=== PATIENT | female | born 1985 | race Caucasian/White ===

== ENCOUNTER 2021-06-29 20:51 | Emergency (ER) | payer MEDICAID ==
[~2021-06-29] VITALS: Ht 175.3 cm; Wt 72.6 kg
[2021-06-29] MEDS ORDERED: CLINDAMYCIN HCL 150 MG CAP PO ONE (23:15)
[2021-06-29 23:23] VITALS: BP 157/98
[2021-06-29] MEDS ORDERED: CLIN150C8 PO (23:32)
== END 2021-06-29 23:50 | disposition home or self-care (01) ==
LOC: ER 20:51
DX: L02.01 Cutaneous abscess of face (principal); L03.211 Cellulitis of face; Z88.8 Allergy status to other drugs, medicaments and biological substances
CPT/HCPCS: 81025

== ENCOUNTER 2024-12-12 13:36 | Emergency (ER) | payer MEDICAID ==
[~2024-12-12] VITALS: Ht 175.3 cm; Wt 87.0 kg
[~2024-12-12 13:36] MED LIST: CLIN150C18 PO
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
[2024-12-12] MEDS ORDERED: IBUP-1456 PO (15:44)
[2024-12-12] MEDS ORDERED: CEPH500C PO (15:44)
[2024-12-12 15:57] VITALS: BP 147/92; PULSE 69; RESP 17; TEMP 98.3
[2024-12-12 15:58] VITALS: O2SAT 99
== END 2024-12-12 15:59 | disposition home or self-care (01) ==
LOC: EDBD 13:36 → ER 13:36
DX: S42.033A Displaced fracture of lateral end of unspecified clavicle, initial encounter for closed fracture (principal); S01.312A Laceration without foreign body of left ear, initial encounter; S16.1XXA Strain of muscle, fascia and tendon at neck level, initial encounter; F17.200 Nicotine dependence, unspecified, uncomplicated; Z79.1 Long term (current) use of non-steroidal anti-inflammatories (NSAID); Z79.899 Other long term (current) drug therapy; Y00.XXXA Assault by blunt object, initial encounter; Y93.89 Activity, other specified; Y92.89 Other specified places as the place of occurrence of the external cause; Y99.8 Other external cause status
CPT/HCPCS: 12013; 70450; 72040; 73000

== ENCOUNTER 2024-12-27 16:03 | Inpatient (IN) | payer MEDICAID ==
[~2024-12-27] VITALS: Ht 175.3 cm; Wt 86.5 kg
[~2024-12-27 16:03] MED LIST changes: +CEPH500C PO; +IBUP-1456 PO
[2024-12-27 19:16] LABS: Hematocrit 44.8 % (36.0-46.0); Hemoglobin 14.8 g/dL (12.2-16.2); Mean Corpuscular Hemoglobin 29.6 pg (28.0-32.0); Mean Corpuscular Volume 89.2 fL (80.0-100.0); Nucleated Red Blood Cells % 0.0 %
[2024-12-27 19:25] LABS: Albumin 4.7 g/dL (3.2-4.8); Anion Gap 10 (5-15); BUN/Creatinine Ratio 8.5 (10.0-20.0); Calcium 9.4 mg/dL (8.7-10.4); Carbon Dioxide 26 mmol/L (20-31); Chloride 103 mmol/L (98-107); Potassium 3.6 mmol/L (3.5-5.1); Sodium 139 mmol/L (136-145); Total Protein 7.5 g/dL (5.7-8.2)
[2024-12-27 19:27] LABS: Alanine Aminotransferase 90 U/L (7-40); Alkaline Phosphatase 145 U/L (46-116); Bilirubin, Total 1.3 mg/dL (0.2-1.0); Blood Urea Nitrogen 7 mg/dL (9-23); Glucose 119 mg/dL (74-106)
[2024-12-27] MEDS: SODIUM CHLORIDE 0.9% 1,000 ML IV ONE (19:29)
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
--- NOTE | 2024-12-27 20:59 | DVH ---
EXAM: CT UPPER EXTREMITY WO CONTRAST INDICATION: right bicep at site of infection EXAM DATE: 12/27/2024 08:05 PM COMPARISON: None TECHNIQUE: Multiple axial CT images of right upper extremity were obtained using bone algorithm. Axia l and coronal reformatting was done. Bone and soft tissue windows were reviewed. Radiation Dose Information: CT Dose: CTDI volume is 8.87 mGy. Dose-length product is 3.85 mGy*cm Findings: Mild motion artifact limits subtle evaluation. An intravenous catheter is noted within the antecubital fossa. Mild inflammatory changes surrounding the cephalic vein within the proximal forearm. In addition, the re is mild inflammatory change surrounding the basilic vein. There is callus formation with heterotopic ossification surrounding a chronic distal clavicular fract ure. The humerus, radius and ulna, and carpal bones are within normal limits. There is mild subcutaneous edema overlying the biceps. No fluid collections. Impression: Inflammatory change surrounding the basilic and cephalic veins, correlate for thrombophlebitis. Consi rochelle dedicated ultrasound for further assessment. Mild edema in the subcutaneous tissues overlying the biceps muscle with mild skin thickening, correla te with examination. No fluid collections. Chronic distal clavicular fracture
[2024-12-27] MEDS: CLINDAMYCIN 600MG IV 50 ML IV ONE (21:24)
--- NOTE | 2024-12-27 22:21 | DVH ---
RIGHT Upper Extremity Venous Duplex Clinical History: right upper bicep edema , pain and erythema Comparison: CT UPPER EXTREMITY WO CONTRAST on DOS: 12/27/24, XY R CLAVICLE COMPLETE XRAY on DOS: 12/12 Technique: Duplex Doppler evaluation of the venous system of the RIGHT lower neck and upper extremity including color Doppler and spectral/pulsed waveform analysis was performed. Findings: The internal jugular vein demonstrates appropriate compressibility and waveform variability. The subclavian vein is patent on color Doppler evaluation without intraluminal thrombus and demonstra lopez waveform variability. The visualized portion of the brachiocephalic vein is patent on color Doppler evaluation without intr aluminal thrombus and demonstrates waveform variability. The axillary vein demonstrates appropriate compressibility and waveform variability. The brachial veins demonstrate appropriate compressibility and patency on Doppler evaluation. The basilic vein demonstrates appropriate compressibility and patency on Doppler evaluation. The cephalic vein demonstrates appropriate compressibility and patency on Doppler evaluation. Impression: 1. No venous thrombus identified in the RIGHT upper extremity vessels evaluated above. 2. If clinical concern/symptoms persist or worsen, short-interval follow-up study is suggested.
--- NOTE | 2024-12-27 22:41 | DVHHPRES ---
History of Present Illness Resident Creating Document: MAE RASHID RESIDENT History of Present Illness This is a 39-year-old female with medical history of diet-controlled diabetes, asthma, cardiomyopathy, epilepsy managed with marijuana, presented to the ER with chief complaint of right arm swelling and erythema. Patient reported that while fixing her garage gate 3 days back she got bit by a spider, the site eventually started swelling up. Since 1 day she also started complaining of bilateral eye redness and swelling. She denies fever, chills, headache, dizziness. PMHx: Diet-controlled diabetes, asthma, cardiomyopathy, epilepsy PSHx: Tubal ligation, hysterectomy, , cholecystectomy Social history: Uses vape both nicotine and marijuana. Quit smoking few years back, she was smoking 1 pack per day for 10 years. Full code Home medication: No home medications Allergic history: Hardy Hester Patient was examined at bedside today. Patient is admitted for further evaluation and management. Review of Systems Review of Systems ROS: Constitutional: Denies weight loss, fever and chills. HEENT: Bilateral eye redness and eyelids swelling, blurry vision. Respiratory: Denies shortness of breath and cough Cardiovascular: Denies chest discomfort or palpitations GI: Denies abdominal pain, nausea, vomiting and diarrhea. : Denies dysuria and urinary frequency. Musculoskeletal: Erythema and swelling in right arm Skin: Denies rash and pruritus. Neurological: Denies dizziness, headache, vision or hearing problems Allergies: Coded Allergies: Metoclopramide (Verified Allergy, Unknown, 06/29/21) Prochlorperazine (Verified Allergy, Unknown, 06/29/21) Exam Vital Signs Vital Signs Date Time Temp Pulse Resp B/P (MAP) Pulse Ox O2 Delivery O2 Flow Rate FiO2 12/27/24 18:38 98.5 95 18 122/84 (97) 99 98.5 12/27/24 18:38 Room Air Exam General: Patient alert and oriented in person, place and time. Patient following commands. HEENT: Bilateral eyelid swelling. Bilateral conjunctival injection, sawyer discharge. Respiratory/pulmonary: Clear lungs bilaterally, vesicular murmurs present in almost all lung bob, no associated crackles or wheezes. Cardiovascular: Normal heart sounds S1 and S2 with no associated murmurs Abdomen: Abdomen nondistended, there is no pain to palpation in any of the abdominal quadrants, no palpable masses. Extremities: Right arm nodular swelling around the biceps, indurated skin, diffuse erythema around the nodular swelling with elevated temperature Peripheral Pulses: 3+ Radial (R). 3+ Radial (L). 3+ Dorsalis pedis (R). 3+ Dorsalis pedis(L) Skin: No rashes or pruritus, there is no sacral edema present at this time. Neurological: Intact cranial nerves with no focal neurologic deficits Labs/Xrays Labs Test 12/27/24 18:57 Range/Units White Blood Count 11.3 H 4.4-10.8 10^3/uL Red Blood Count 5.02 4.0-5.20 10^6/uL Hemoglobin 14.8 12.2-16.2 g/dL Hematocrit 44.8 36.0-46.0 % Mean Corpuscular Volume 89.2 80.0-100.0 fL Mean Corpuscular Hemoglobin 29.6 28.0-32.0 pg Mean Corpuscular Hemoglobin Concent 33.2 32.0-36.0 g/dL Red Cell Distribution Width 12.7 11.8-14.3 % Platelet Count 356 140-450 10^3/uL Mean Platelet Volume 6.6 L 6.9-10.8 fL Neutrophils (%) (Auto) 70.6 37.0-80.0 % Lymphocytes (%) (Auto) 18.9 10.0-50.0 % Monocytes (%) (Auto) 9.1 0.0-12.0 % Eosinophils (%) (Auto) 0.9 0.0-7.0 % Basophils (%) (Auto) 0.5 0.0-2.0 % Neutrophils # (Auto) 8.0 1.6-8.6 10 ^3/uL Lymphocytes # (Auto) 2.1 0.4-5.4 10 ^3/uL Monocytes # (Auto) 1.0 0-1.3 10 ^3/uL Eosinophils # (Auto) 0.1 0-0.8 10 ^3/uL Basophils # (Auto) 0.1 0-0.2 10 ^3/uL Nucleated Red Blood Cells 0.0 % D-Dimer, Quantitative 0.26 0.0-0.49 mg/L FEU Sodium Level 139 136-145 mmol/L Potassium Level 3.6 3.5-5.1 mmol/L Chloride Level 103 98-107 mmol/L Carbon Dioxide Level 26 20-31 mmol/L Anion Gap 10 5-15 Blood Urea Nitrogen 7 L 9-23 mg/dL Creatinine 0.82 0.550-1.02 mg/dL Glomerular Filtration Rate Calc 92 >90 mL/min BUN/Creatinine Ratio 8.5 L 10.0-20.0 Serum Glucose 119 H 74-106 mg/dL Calcium Level 9.4 8.7-10.4 mg/dL Total Bilirubin 1.3 H 0.2-1.0 mg/dL Aspartate Amino Transferase (AST) 52 H 13-40 U/L Alanine Aminotransferase (ALT) 90 H 7-40 U/L Alkaline Phosphatase 145 H 46-116 U/L Total Protein 7.5 5.7-8.2 g/dL Albumin 4.7 3.2-4.8 g/dL SEPSIS Sepsis Screen Date sepsis recognized/suspect: Dec 27, 2024 Time Sepsis recognized/suspect: 1608 Recent Procedure: No On Antibiotic Therapy: No Respiratory Rate >20: No Heart Rate >90: No Temp<36 C (96.8 F) or >38.3 C: No SBP <90 or MAP <65 mmHG: No New Acute Mental Status Change: No Is the patient on CPAP, BIPAP,: No Physician Orders Blood Culture (12/27/24 18:50) Heplock Iv (12/27/24 ) Upper Extremity Wo Contrast (12/27/24 19:40) Rt Upper Dvt (12/27/24 21:27) Urinalysis (12/27/24 21:27) Drug Screen (12/27/24 21:27) Vital Signs Date Time Temp Pulse Resp B/P (MAP) Pulse Ox O2 Delivery O2 Flow Rate FiO2 12/27/24 18:38 98.5 95 18 122/84 (97) 99 98.5 12/27/24 18:38 95 18 99 Room Air 12/27/24 16:08 98.3 81 18 160/92 100 98.3 Laboratory Tests Test 12/27/24 18:57 White Blood Count 11.3 10^3/uL (4.4-10.8) H Medications Medications Dose Ordered Sig/Yasmin Route Start Time Stop Time Status Last Admin Dose Admin Clindamycin Phosphate 50 ml @ 50 mls/hr ONCE ONCE IV 12/27/24 19:00 12/27/24 19:59 DC 12/27/24 21:24 50 MLS/HR Sodium Chloride 1,000 ml @ 1,000 mls/hr Q1H ONCE IV 12/27/24 19:00 12/27/24 19:59 DC 12/27/24 19:29 1,000 MLS/HR Assessment/Plan Assessment/Plan Cellulitis right upper arm Thrombophlebitis right upper arm CT shows Inflammatory change surrounding the basilic and cephalic veins, correlate for thrombophlebitis. Consider dedicated ultrasound for further assessment. Mild edema in the subcutaneous tissues overlying the biceps muscle with mild skin thickening, correlate with examination. Started on IV cefazolin and IV fluid Blood culture and MRSA screen ordered Transaminitis Hepatomegaly and hepatic steatosis Hepatitis panel, liver ultrasound ordered DVT ruled out Right upper extremity Doppler negative for DVT Bilateral bacterial conjunctivitis Erythromycin ointment, artificial Tear eyedrops Ordered STI work up History of epilepsy History of cardiomyopathy Ordered echocardiogram Nicotine dependence Counseled to quit nicotine on bedside for more than 12 minutes Offered nicotine patch DIET: Consistent carb DVT PROPHYLAXIS: Lovenox GI PROPHYLAXIS: Protonix CODE STATUS: Goals of care discussed with patient at bedside for more than 37 minutes. Full code DISPOSITION: Med/surge Patient's status and plan discussed with the patient. Case discussed with Dr. Brown Plan discussed with: Patient, Other (Nurses) Date of Service: Dec 27, 2024 Billing Provider: KRISTIN BROWN MD Common Visit Codes: [id number] INP/OBS CARE (HIGH) Secondary Visit Codes: [id number] CARE PLAN 30 MINUTES MAE RASHID RESIDENT Dec 27, 2024 22:41 MARILYN ROMERO RESIDENT Dec 28, 2024 07:57
[2024-12-27] MEDS ORDERED: MORPHINE SULFATE INJ 2 MG/ml SYRG IV PRN (23:15)
[2024-12-27] MEDS: ENOXAPARIN SOD 40 MG/0.4 ML SYRINGE SC SCH (23:15)
[2024-12-27 23:39] LABS: Magnesium 2.3 mg/dL (1.6-2.6)
[2024-12-27 23:40] LABS: Cholesterol 157.0 mg/dL (< 200); HDL Cholesterol 56.0 mg/dL (40-59)
[2024-12-27 23:44] LABS: Triglycerides 156.0 mg/dL (< 150)
[2024-12-27] MEDS: ERYTHROMY OPTH OINT 5mg/gm 1gm or 3.5gm tube OP ONE (23:45)
[2024-12-27] MEDS: ceFAZolin 1GM/50ML 50 ML IV ONE (23:45)
[2024-12-27 23:56] LABS: Lipase 37.0 U/L (12-53)
[2024-12-28] VITALS (7 sets, daily range): BP systolic 120–142; BP diastolic 74–88; PULSE 71–103; RESP 18–92; TEMP 97.9–98.7; O2SAT 96–99
[2024-12-28 00:24] LABS: INR 1.03 (0.9-1.15); Partial Thromboplastin Time 30.2 SEC (24.5-34.5); Prothrombin Time 10.9 sec (9.3-11.8)
[2024-12-28] MEDS: ERYTHROMY OPTH OINT 5mg/gm 1gm or 3.5gm tube OP SCH (02:00)
[2024-12-28] MEDS: SODIUM CHLORIDE 0.9% 1,000 ML IV SCH (05:55)
--- NOTE | 2024-12-28 06:14 | DVH ---
INDICATION: Transminitis TECHNIQUE: Multiple real-time sonographic images were obtained of the right upper quadrant. COMPARISON: None FINDINGS: The liver demonstrates diffusely increased echotexture without focal mass lesions. The live r measures 17.7 cm. Normal hepatopetal portal venous flow identified. No evidence of pleural effusio n or abdominal ascites. There is no intrahepatic or extrahepatic ductal dilatation. The common duct measures 0.4 cm. The gallbladder is surgically absent. Negative sonographic jung's sign. The right kidney measures 9.9 cm. The right kidney is normal in contour, size, and shape. The echogen icity is normal. There is no hydronephrosis. The pancreas is not well visualized due to overlying bowel gas. IMPRESSION: 1. Hepatic steatosis and hepatomegaly. 2. Cholecystectomy.
[2024-12-28 09:06] LABS: Hematocrit 43.7 % (36.0-46.0); Hemoglobin 14.3 g/dL (12.2-16.2); Mean Corpuscular Hemoglobin 29.7 pg (28.0-32.0); Mean Corpuscular Volume 90.9 fL (80.0-100.0); Nucleated Red Blood Cells % 0.1 %
[2024-12-28 09:27] LABS: Albumin 4.4 g/dL (3.2-4.8); Anion Gap 9 (5-15); BUN/Creatinine Ratio 10.0 (10.0-20.0); Calcium 9.1 mg/dL (8.7-10.4); Carbon Dioxide 26 mmol/L (20-31); Chloride 103 mmol/L (98-107); Glucose 86 mg/dL (74-106); Potassium 4.2 mmol/L (3.5-5.1); Sodium 138 mmol/L (136-145); Total Protein 7.1 g/dL (5.7-8.2)
[2024-12-28] MEDS: NICOTINE 14 MG/24HR TOPICAL PATCH TD SCH (10:00)
[2024-12-28] MEDS: ACETAMINOPHEN 325 MG TAB PO PRN (10:04)
[2024-12-28 10:05] LABS: Alanine Aminotransferase 112 U/L (7-40); Alkaline Phosphatase 163 U/L (46-116); Bilirubin, Total 1.3 mg/dL (0.2-1.0); Blood Urea Nitrogen 7 mg/dL (9-23)
[2024-12-28] MEDS: PANTOPRAZOLE 40 MG TAB PO SCH (10:06)
[2024-12-28] MEDS: ceFAZolin 1GM/50ML 50 ML IV SCH (10:16)
[2024-12-28 15:34] LABS: Urine Protein, UAD Negative (Negative)
[2024-12-28 15:44] LABS: Amphetamine Screen, Urine Pos (NEGATIVE); Barbiturate Scree,Urine Neg (NEGATIVE); Benzodiazephine Screen, Urine Neg (NEGATIVE); Cannabinoid Screen, Urine Neg (NEGATIVE); Cocaine Screen, Urine Neg (NEGATIVE); Opiate Scree,Urine Neg (NEGATIVE); Phencyclidine Screen, Urine Neg (NEGATIVE)
--- NOTE | 2024-12-28 18:07 | DVHPN2 ---
Assessment/Plan Assessment/Plan 39 F with diet controlled DM, asthma, CM, epilepsy admitted for cellulitis 2/2 bug bite. has L ear suture s/p trauma seen today, swelling improved, ct with phlebitis and celulitis physical exam aox4 ctab s1 s2 rrr abdomen soft no le edema R biceps swelling tenderness L ear sutures labs ekg imaging reviewed assessment and plan NIDDM cellulitis w phlebitis transaminitis dvt ruled out conjunctivitis epilepsy smoker ear lac s/p sutures ancef remove sutures tomorrow resume home meds diet diabetic dvt ppx hold full code Plan discussed with: Patient Date of Service: Dec 28, 2024 Billing Provider: KRISTIN COTTO MD Common Visit Codes: [id number] INP/OBS CARE(HIGH) KRISTIN COTTO MD Dec 28, 2024 18:07
[2024-12-28] MEDS: ARTIFICIAL TEAR OPTH(EYE) OINT 3.5GM EACHEYE SCH (22:58)
[2024-12-29 01:00] VITALS: BP 130/96; PULSE 98; RESP 18; TEMP 98.1; O2SAT 98
[2024-12-29 05:00] VITALS: BP 124/88; PULSE 87; RESP 17; TEMP 97.7; O2SAT 96
[2024-12-29 08:00] VITALS: PULSE 87; RESP 18; O2SAT 96
[2024-12-29 08:42] VITALS: BP 124/88; PULSE 87; RESP 18; TEMP 98.2; O2SAT 96
[2024-12-29] MEDS ORDERED: IBU600T PO (09:29)
[2024-12-29] MEDS ORDERED: AUG875T PO (09:29)
--- NOTE | 2024-12-29 09:31 | DVHDS2 ---
Discharge Summary Date of Admission Dec 27, 2024 at 23:08 Date of Discharge: Dec 29, 2024 Labs/Diagnostic Data: Laboratory Results Test 12/28/24 15:00 12/28/24 08:44 12/27/24 23:50 12/27/24 18:57 Urine Color Light-yellow (Yellow) Urine Clarity Clear (Clear) Urine pH 7.5 (5.0-9.0) Urine Specific Schuyler 1.007 (1.001-1.035) Urine Protein Negative (Negative) Urine Ketones Negative (Negative) Urine Blood Negative /uL (Negative) Urine Nitrite 2+ (Negative) Urine Bilirubin Negative (Negative) Urine Urobilinogen Normal mg/dL (Negative) Urine Leukocyte Esterase 2+ /uL (Negative) Urine RBC <1 /hpf (0 - 4) Urine Microscopic WBC 8 /HPF (0-5) Urine Squamous Epithelial Cells Few /hpf (<5) Urine Bacteria Few /hpf (None Seen) Urine Glucose Normal mg/dL (Normal) Urine Test Negative (Negative) Urine Opiates Screen Neg (NEGATIVE) Urine Fentanyl Screen Neg (NEGATIVE) Urine Barbiturates Screen Neg (NEGATIVE) Urine Phencyclidine Screen Neg (NEGATIVE) Urine Amphetamines Screen Pos (NEGATIVE) Urine Benzodiazepines Screen Neg (NEGATIVE) Urine Cocaine Screen Neg (NEGATIVE) Urine Cannabinoids Screen Neg (NEGATIVE) White Blood Count 10.7 10^3/uL (4.4-10.8) Red Blood Count 4.81 10^6/uL (4.0-5.20) Hemoglobin 14.3 g/dL (12.2-16.2) Hematocrit 43.7 % (36.0-46.0) Mean Corpuscular Volume 90.9 fL (80.0-100.0) Mean Corpuscular Hemoglobin 29.7 pg (28.0-32.0) Mean Corpuscular Hemoglobin Concent 32.7 g/dL (32.0-36.0) Red Cell Distribution Width 13.0 % (11.8-14.3) Platelet Count 334 10^3/uL (140-450) Mean Platelet Volume 6.6 fL (6.9-10.8) Neutrophils (%) (Auto) 60.5 % (37.0-80.0) Lymphocytes (%) (Auto) 26.8 % (10.0-50.0) Monocytes (%) (Auto) 10.5 % (0.0-12.0) Eosinophils (%) (Auto) 1.4 % (0.0-7.0) Basophils (%) (Auto) 0.8 % (0.0-2.0) Neutrophils # (Auto) 6.5 10 ^3/uL (1.6-8.6) Lymphocytes # (Auto) 2.9 10 ^3/uL (0.4-5.4) Monocytes # (Auto) 1.1 10 ^3/uL (0-1.3) Eosinophils # (Auto) 0.1 10 ^3/uL (0-0.8) Basophils # (Auto) 0.1 10 ^3/uL (0-0.2) Nucleated Red Blood Cells 0.1 % Sodium Level 138 mmol/L (136-145) Potassium Level 4.2 mmol/L (3.5-5.1) Chloride Level 103 mmol/L (98-107) Carbon Dioxide Level 26 mmol/L (20-31) Anion Gap 9 (5-15) Blood Urea Nitrogen 7 mg/dL (9-23) Creatinine 0.70 mg/dL (0.550-1.02) Glomerular Filtration Rate Calc 111 mL/min (>90) BUN/Creatinine Ratio 10.0 (10.0-20.0) Serum Glucose 86 mg/dL (74-106) Calcium Level 9.1 mg/dL (8.7-10.4) Total Bilirubin 1.3 mg/dL (0.2-1.0) Aspartate Amino Transferase (AST) 77 U/L (13-40) Alanine Aminotransferase (ALT) 112 U/L (7-40) Alkaline Phosphatase 163 U/L (46-116) Total Protein 7.1 g/dL (5.7-8.2) Albumin 4.4 g/dL (3.2-4.8) Prothrombin Time 10.9 sec (9.3-11.8) Prothrombin Time INR 1.03 (0.9-1.15) Activated Partial Thromboplast Time 30.2 SEC (24.5-34.5) D-Dimer, Quantitative 0.26 mg/L FEU (0.0-0.49) Hemoglobin A1c 5.1 % A1C (<5.7) Phosphorus Level 2.5 mg/dL (2.4-5.1) Magnesium Level 2.3 mg/dL (1.6-2.6) C-Reactive Protein High Sensitivity 7.36 mg/dL (<1.0) Triglycerides Level 156 mg/dL (< 150) Cholesterol Level 157 mg/dL (< 200) LDL Cholesterol 89 mg/dL (< 100) HDL Cholesterol 56 mg/dL (40-59) Lipase 37 U/L (12-53) Vitamin B12 Level 340 pg/mL (211-911) Vitamin D 25-Hydroxy 29.9 ng/mL (30.0-100) Thyroid Stimulating Hormone (TSH) 1.45 uIU/mL (0.55-4.78) Other Laboratory Tests 12/28/24 08:44 Brief Hx & Hospital Course: 39 F with diet controlled DM, asthma, CM, epilepsy admitted for cellulitis 2/2 bug bite. has L ear suture s/p trauma. started on ancef, improved. ct with phlebitis and celulitis. patient refused further labs. bcx prelim neg. dc with augmentin. suture removed Condition at Discharge: Stable Final Diagnosis/Problems List NIDDM cellulitis w phlebitis transaminitis dvt ruled out conjunctivitis epilepsy smoker ear lac s/p sutures Discharge Disposition: Home Discharge Instruct/Medications Diet: Regular Activity: No Restrictions, As Tolerated Follow Up/Referral: pcp Medications: augmentin Scheduled Amoxicillin & Pot Clavulanate (Augmentin Tablet), 875 MG PO BID Scheduled PRN Ibuprofen Micronized (Motrin Tablet), 600 MG PO TID PRN Discontinued Medications Cephalexin Monohydrate (Cephalexin), 1 CAP PO QID Clindamycin Hcl (Clindamycin Hcl), 450 MG PO TID Ibuprofen (Ibuprofen), 1 TAB PO TID Discharge Statement: "Patient was advised to return to the ER or call 911 if any headaches, dizziness, shortness of breath, chest pain, abdominal pain, bleeding, fevers, or worsening of medical condition. Patient was counseled about treatment plan, medications, possible side effects, patientverbalized understanding. All questions were answered to the best of my ability. This discharge took greater then 30 minutes in planning, reviewing documentation, counseling the patient, and discussing with other team members." ASSESSMENT ASSESSMENT Assessment celulitis phlebitis Date of Service: Dec 29, 2024 Billing Provider: KRISTIN COTTO MD Common Visit Codes: [id number]/[id number] DISCH DAY >30min KRISTIN COTTO MD Dec 29, 2024 09:31
--- NOTE | 2024-12-29 09:32 | DVHNC2 ---
Other Procedure Notes L ear suture removal three simple interrupted sutures were removed from l ear. wound was well approximated with no signs of active infection or dehiscence. tolerated procedure well. leave wound to open air, routine hygiene Date of Service: Dec 29, 2024 Billing Provider: KRISTIN COTTO MD Common Visit Codes: PROCEDURE ONLY (12387 suture removal ) KRISTIN COTTO MD Dec 29, 2024 09:32
[2024-12-29 09:57] VITALS: TEMP 98.2
[2024-12-29 10:57] LABS: Hematocrit 46.2 % (36.0-46.0); Hemoglobin 15.2 g/dL (12.2-16.2); Mean Corpuscular Hemoglobin 29.9 pg (28.0-32.0); Mean Corpuscular Volume 91.0 fL (80.0-100.0); Nucleated Red Blood Cells % 0.2 %
[2024-12-29 11:18] LABS: Albumin 4.5 g/dL (3.2-4.8); Anion Gap 9 (5-15); BUN/Creatinine Ratio 9.0 (10.0-20.0); Calcium 9.2 mg/dL (8.7-10.4); Carbon Dioxide 23 mmol/L (20-31); Chloride 103 mmol/L (98-107); Glucose 104 mg/dL (74-106); Potassium 4.8 mmol/L (3.5-5.1); Total Protein 7.4 g/dL (5.7-8.2)
[2024-12-29 11:19] LABS: Bilirubin, Total 1.0 mg/dL (0.2-1.0)
[2024-12-29 11:23] LABS: Alanine Aminotransferase 131 U/L (7-40); Alkaline Phosphatase 190 U/L (46-116); Blood Urea Nitrogen 7 mg/dL (9-23); Sodium 135 mmol/L (136-145)
[2024-12-29] MEDS ORDERED: MUPI2OIN2 EX (13:38)
[2024-12-30 09:53] LABS: Hepatitis B Surface Antigen Negative (Negative)
[2024-12-30 10:35] LABS: Hepatitis C Antibody Positive (Negative)
== END 2024-12-29 12:10 | disposition home or self-care (01) | DRG 383 ==
LOC: EDUNIT# 16:03 → EDBD 16:03 → ER 16:03 → OVERFLOW 23:08 → CENTRAL 12-28 23:20
PROVIDERS: ATTEND Student in an Organized Health Care Education/Training Program
PROC: 8E09XY8 Suture Removal from Head and Neck Region (ICD-10-PCS; principal; 2024-12-29)
DX: L03.113 Cellulitis of right upper limb (principal); I80.8 Phlebitis and thrombophlebitis of other sites; S01.312A Laceration without foreign body of left ear, initial encounter; R16.0 Hepatomegaly, not elsewhere classified; E11.9 Type 2 diabetes mellitus without complications; F17.200 Nicotine dependence, unspecified, uncomplicated; G40.909 Epilepsy, unspecified, not intractable, without status epilepticus; R74.01 Elevation of levels of liver transaminase levels; K76.0 Fatty (change of) liver, not elsewhere classified; H10.9 Unspecified conjunctivitis; J45.909 Unspecified asthma, uncomplicated; W57.XXXA Bitten or stung by nonvenomous insect and other nonvenomous arthropods, initial encounter; Z88.8 Allergy status to other drugs, medicaments and biological substances; Z90.49 Acquired absence of other specified parts of digestive tract; Z90.710 Acquired absence of both cervix and uterus; Z71.6 Tobacco abuse counseling; Z79.84 Long term (current) use of oral hypoglycemic drugs
CPT/HCPCS: 36415; 73200; 76705; 80053; 80061; 80074; 80307; 81001; 81025; 82306; 82607; 83036; 83690; 83735; 84100; 84443; 85025; 85379; 85610; 85730; 86141; 87040; 87081; 93971; 96360; G0378; J3490